=== PATIENT | female | born 2000 | race Caucasian/White ===

== ENCOUNTER 2021-12-08 18:47 | Emergency (ER) | payer OTHER ==
--- OUTSIDE RECORDS SUMMARY | 2021-12-08 18:50 | XMS REPORT | Continuity of Care Document ---
:2000 Author Organization [facility] t Address [address] [place] [address] Care Team Providers Name Role Phone Danica Hahn Primary Care Physician [phone] Ángel PEDRO, Ridge Mo Attending Clinician Unavailable Sherry Lam Attending Clinician Ultrasound, Teresa Attending Clinician Unavailable Imani Encarnacion MD Attending Clinician [phone] IMANI ENCARNACION Attending Clinician Unavailable DAINCA NAVARRETE Attending Clinician Unavailable Danica Hahn Attending Clinician [phone] Payers Payer Name Policy Type Policy Number Effective Date Expiration Date Minoo DIAS [id number] 2021 00:00:00 Problems Condition Condition Condition Status Onset Resolution Last Treating Co mments Source Name Details Category Date Date Treatment Clinician Date Nausea and Nausea and Disease Active U nivers vomiting vomiting 8-11 ity of during during 00:00: [place] 00 [facility] GBS (group GBS (group Disease Active Overview : Univers B B 7-18 Formattin ity of streptococ streptococ 00:00: g of this [place] cus) UTI cus) UTI 00 note Medica l complicati complicati might be Branch ng ng different from the original. pending yaniv Supervisio Supervisio Disease Active U nivers n of n of 7-14 ity of high[place]risk [place] [facility] History of History of Disease Active Overview : Univers depression depression 7-14 Formattin ity of 00:00: g of this [place] note Medical might be Branch different from the original. Not on meds, does not desires meds at this time History of History of Disease Active Overview : Univers anxiety anxiety 7-14 Formattin ity o f 00:00: g of this [place] note Medical might be Branch different from the original. Not on meds, does not desire meds at this time Allergies, Adverse Reactions, Alerts Allergy Allergy Status Severity Reaction(s) Onset Inactive Treating Comm ents Source Name Type Date Date Clinician NO KNOWN Drug Active Univers ALLERGIE Class ity of S [facility] Social History Social Habit Start Date Stop Date Quantity Comments Source ASSERTION 2021-09-26 [facility] 00:00:00 [facility] History of User of smokeless Univers ity of tobacco use tobacco [facility] Exposure to 2021-11-11 2021-11-21 Not sure [facility] SARS-CoV-2 00:00:00 09:43:00 [facility] (event) Branch Tobacco use and 2021-10-24 2021-10-24 Former smokeless Uni versity of exposure 00:00:00 00:00:00 tobacco user [facility] [place] Alcohol intake 2021-10-24 2021-10-24 Ex-drinker [facility] 00:00:00 00:00:00 (finding) [facility] Sex Assigned At [birth year] Universit y of 00:00:00 00:00:00 [facility] Smoking Status Start Date Stop Date Source Never smoked tobacco [facility] [place] [facility] Medications Ordered Filled Start Stop Current Ordering Indication Dosage Frequency Signature Comments Components Source Medication Medication Date Date Medication? Clinician (SIG) Name Name proMETHazin Yes [id number] 25mg Take 1 Univers e 25 mg 8-11 tablet by ity of tablet 00:00: mouth 00 every 6 Medical (six) Branch hours as needed for Nausea and Vomiting (N/V). proMETHazin Yes [id number] 25mg Take 1 Univers e 25 mg 8-11 tablet by ity of tablet 00:00: mouth [place] 00 every 6 Medical (six) Branch hours as needed for Nausea and Vomiting (N/V). proMETHazin Yes [id number] 25mg Take 1 Univers e 25 mg 8-11 tablet by ity of tablet 00:00: mouth [place] 00 every 6 Medical (six) Branch hours as needed for Nausea and Vomiting (N/V). proMETHazin Yes [id number] 25mg Take 1 Univers e 25 mg 8-11 tablet by ity of tablet 00:00: mouth [place] 00 every 6 Medical (six) Branch hours as needed for Nausea and Vomiting (N/V). Yes [id number] 1{packe Take 1 Univers vit 7-25 t} Packet by ity of 33-iron-fol 00:00[place] ic-dha 00 the Medical (SELECT-OB morning. Branc h + DHA) 29 mg iron-1 mg -250 mg combo pack Yes [id number] 1{packe Take 1 Univers vit 7-25 t} Packet by ity of 33-iron-fol 00:00: [place] ic-dha 00 the Medical (SELECT-OB morning. Branc h + DHA) 29 mg iron-1 mg -250 mg combo pack Yes [id number] 1{packe Take 1 Univers vit 7-25 t} Packet by ity of 33-iron-fol 00:[place]: [place] ic-dha 00 the Medical (SELECT-OB morning. Branc h + DHA) 29 mg iron-1 mg -250 mg combo pack Yes [id number] 1{packe Take 1 Univers vit 7-25 t} Packet by ity of 33-iron-fol 00:00: [place] ic-dha 00 the Medical (SELECT-OB morning. Branc h + DHA) 29 mg iron-1 mg -250 mg combo pack Vital Signs Vital Name Observation Time Observation Value Comments Source Systolic blood 2021-11-21 14:42:00 116 mm[Hg] Univer sity of [facility] Diastolic blood 2021-11-21 14:42:00 72 mm[Hg] [facility] Heart rate 2021-11-21 14:42:00 85 /min Universi [facility] Body temperature 2021-11-21 14:42:00 36.17 Conchita [facility] Respiratory rate 2021-11-21 14:42:00 18 /min [facility] Body height 2021-11-21 14:42:00 144.8 cm [facility] Body weight 2021-11-21 14:42:00 44.453 kg [facility] BMI 2021-11-21 14:42:00 21.21 kg/m2 [facility] Procedures Procedure Date / Time Performed Performing Clinician Sourc e POCT URINALYSIS 2021-11-21 00:00:00 Danica Navarrete [facility] Encounters Start End Encounter Admission Attending Care Care Encounter Source Date/Time Date/Time Type Type Clinicians Facility Department ID 2022-01-22 2022-01-22 Outpatient R [facility] [id number] Univers 10:30:00 10:30:00 [id number] [facility] 2022-01-22 2022-01-22 Outpatient P [facility] [id number] Univers 10:30:00 10:30:00 [facility] 2021-12-08 2021-12-08 Nurse OTILIA Neal [id number] Univers 00:00:00 00:00:00 Triage Ridge PEREZ [id number] ity [facility] [id number] Michael as [phone] [address] 2021-12-03 2021-12-03 Abstract Tico [facility] [id number] Univers 00:00:00 00:00:00 Sherry Miller SAND WORKER [id number] ity [facility] [id number] Michael as MATERNAL [phone] [facility] & CHILD [address] [place] [address] 2021-12-02 2021-12-02 Sr. Manager Ultrasound, Teresa [facility] [id number] Univers 09:15:00 09:45:00 Visit Imani Encarnacion SAND WORKER [id number] ity [facility] [id number] Michael as MATERNAL [phone] [facility] & CHILD [address] [facility] 2021-12-02 2021-12-02 Outpatient P OMERE, [facility] [id number] Univers 09:15:00 09:29:35 CHASEY ity of [facility] 2021-11-21 2021-11-21 Outpatient R LANDON, [facility] [id number] Univers 09:45:00 10:05:22 DANICA ity o f [facility] 2021-11-21 2021-11-21 Routine Akinpe, [facility] [id number] Univers 09:45:00 10:05:22 Danica C SAND WORKER [id number] ity of Visit REGIONAL [id number] Michael as MATERNAL [phone] [facility] [address] [facility] Results Test Description Test Time Test Comments Results Result Comments Source POCT URINALYSIS W SPECIFIC GRAVITY 2021-11-21 14:51:00 Test Item Value Reference Range Interpretation Comme nts POCT U SP GRAV (test code = 3255) . 1.005-1.025 POCT PH U (test code = 3254) . 5-8 POCT U LEUK EST (test code = 3263) . Negative - Negative POCT U NIT (test code = 3262) . Negative - Negative POCT U PROT (test code = 3259) Trace Negative - Negative POCT U GLU (test code = 3256) Negative Negative - Negative POCT U KETONE (test code = 3258) . Negative - Negative POCT U UROBILI (test code = 3260) . 0.2-1 POCT U BILI (test code = 3261) . Negative - Negative POCT U BLD (test code = 3257) . Negative - Negative POCT U COLOR (test code = 3266) . POCT U APPEAR (test code = 3267) . [facility]
[2021-12-08 19:23] LABS: Urine Blood Trace-intact (Negative); Urine Glucose Negative (Negative); Urine Protein Negative (Negative); Urine Specific Gravity 1.025 (1.005-1.030)
[2021-12-08 19:41] LABS: Urine Specific Gravity/Preg 1.025 (1.005-1.030)
[2021-12-08 19:59] LABS: Absolute Lymphocytes (CBC) 2.3 K/uL (0.7-4.9); Hematocrit 37.4 % (36.0-45.0); Lymphocytes % 16.2 % (15.3-44.8); MCV 85.2 fL (80-100); MPV 7.2 fL (7.6-11.3); RBC Red Blood Cell Count 4.39 M/uL (3.86-4.86)
[2021-12-08 20:05] LABS: Potassium 3.5 mmol/L (3.5-5.1)
--- NOTE | 2021-12-08 21:20 | RAD REPORT ---
EXAM DESCRIPTION: US - Transvaginal OB - 12/08/2021 8:59 pm CLINICAL HISTORY: Vaginal bleeding COMPARISON: None. TECHNIQUE: Ultrasound obtained of the uterus FINDINGS: Single IUP identified. heart tones are present. heart rate is measured at 156 beats/minute. A yolk sac is identified measuring 5 millimeters. Echogenic band within the gestational sac. measurements are as follows: BPD:1.0 centimeters HC:6.9 Centimeters 12 week 5 day AC:5.5 Centimeters 12 week 2 day HL:0.8 Centimeters FL:0.7 Centimeters 12 week 1 day The estimated gestational age (EGA) is 12 week 2 day with an ARABELLA of 06/20/2022. Posterior placenta. IMPRESSION: Single IUP with positive heart tones measuring 12.2 day with ARABELLA of 06/20/2022. Th in echogenic band within the gestational sac is probably of little clinical significance. This can be reassessed on the patient's routine anatomy scan.
--- NOTE | 2021-12-08 21:58 | ER ---
Nurse's Notes [facility] Name: Kevin Pappas Age: 21 yrs Sex: Female : 2000 Arrival Date: 12/08/2021 Time: 18:48 Bed 8 Private MD: Diagnosis: Threatened Presentation: 12/08 19:08 Chief complaint: Patient states: light spotting. 13 weeks . lower back pain lg3 starting around 0800 this morning. last OB visit 11/22/21. Coronavirus screen: Client denies travel out of the [place] in the last 14 days. At this time, the client does not indicate any symptoms associated with coronavirus-19. Ebola Screen: No symptoms or risks identified at this time. Initial Sepsis Screen:. Initial Sepsis Screen: Does the patient meet any 2 criteria? No. Patient's initial sepsis screen is negative. Does the patient have a suspected source of infection? No. Patient's initial sepsis screen is negative. Risk Assessment: Do you want to hurt yourself or someone else? Patient reports no desire to harm self or others. Onset of symptoms was December 08, 2021. 19:08 Method Of Arrival: Ambulatory lg3 19:08 Acuity: PANCHITO 3 lg3 Triage Assessment: 19:11 General: Appears in no apparent distress. comfortable, Behavior is calm, cooperative. lg3 Pain: Complains of pain in back and pelvis. EENT: No deficits noted. No signs and/or symptoms were reported regarding the EENT system. Neuro: No deficits noted. Level of Consciousness is awake, alert, obeys commands, Oriented to person, place, time, situation. Cardiovascular: No deficits noted. Denies chest pain, shortness of breath, Capillary refill < 3 seconds Clubbing of nail beds is absent JVD is absent Patient's skin is warm and dry. Respiratory: No deficits noted. Airway is patent Respiratory effort is even, unlabored, Respiratory pattern is regular, symmetrical. GI: Abd is soft X 4 quads Abd is non tender X 4 quads. : Reports vaginal bleeding that is spotty. Derm: No deficits noted. No signs and/or symptoms reported regarding the dermatologic system. Skin is intact, is healthy with good turgor, Skin is dry, Skin temperature is warm. Musculoskeletal: No deficits noted. No signs and/or symptoms reported regarding the musculoskeletal system. Circulation, motion, and sensation intact. Range of motion: intact in all extremities. 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 - Social history:: Smoking status: Patient/guardian denies using tobacco, Patient/guardian denies using alcohol, street drugs, IV drugs. Screenin:25 Abuse screen: Denies threats or abuse. Denies injuries from another. Nutritional tw5 screening: No deficits noted. Tuberculosis screening: No symptoms or risk factors identified. Fall Risk None identified. Assessment: 19:25 General: Appears in no apparent distress. Behavior is calm, cooperative, appropriate tw5 for age. General: Reports "I started bleeding around 8 this morning so I called my clinic but they aren't open so they told me if the bleeding continued to come to the ER. I have had spotting off and on all day, I am just really worried.". Pain: Complains of pain in left lower quadrant Pain currently is 4 out of 10 on a pain scale. Pain: Quality of pain is described as crampy. Cardiovascular: No deficits noted. Respiratory: No deficits noted. 20:19 Reassessment: Patient appears in no apparent distress at this time. Patient and/or hb family updated on plan of care and expected duration. Pain level reassessed. Patient is alert, oriented x 3, equal unlabored respirations, skin warm/dry/pink. 21:45 Reassessment: Patient appears in no apparent distress at this time. Patient and/or hb family updated on plan of care and expected duration. Pain level reassessed. Patient is alert, oriented x 3, equal unlabored respirations, skin warm/dry/pink. Vital Signs: 19:08 BP 124 / 69; Pulse 87; Resp 17; Temp 98.8(O); Pulse Ox 100% on R/A; Weight 44.45 kg lg3 (R); Height 4 ft. 8 in. (142.24 cm) (R); 19:25 BP 133 / 92; Pulse 88; Resp 18; Pulse Ox 99% on R/A; Pain 4/10; tw5 20:18 BP 117 / 66; Pulse 87; Resp 16; Pulse Ox 100% on R/A; hb 21:46 BP 122 / 80; Pulse 79; Resp 14; Pulse Ox 99% ; hb 19:08 Body Mass Index 21.97 (44.45 kg, 142.24 cm) lg3 ED Course: 18:48 Patient arrived in ED. as 18:49 Pallavi Lewis FNP-C is PHCP. kb 18:49 Matthew Mederos MD is Attending Physician. kb 19:11 Triage completed. lg3 19:11 Arm band placed on left wrist. lg3 19:25 Saundra Chandler is Primary Nurse. tw5 19:25 Awaiting lab results. tw5 19:25 Patient has correct armband on for positive identification. Bed in low position. Call tw5 light in reach. Side rails up X 1. Pulse ox on. NIBP on. Door closed. Noise minimized. Moved to private room. Pillow given. Verbal reassurance given. 19:49 Inserted saline lock: 20 gauge in left antecubital area, using aseptic technique. mw1 19:50 Initial lab(s) drawn, by pr, sent to lab. mw1 20:24 Quantitative Hcg Sent. tw5 20:24 Abo/rh Typing Sent. tw5 21:01 US Transvaginal Ob In Process Unspecified. EDMS Administered Medications: No medications were administered Outcome: 21:58 Discharge ordered by . kb 22:22 Patient left the ED. Signatures: Dispatcher [employer] EDMS Pallavi Lewis FNP-C FNP-Ckb Martinez, Amelia as Baxter, Heather, RN RN Andrew Campos 1 Marilyn Yang, WILLIS RN 3 Elsi Ramirez Saundra Chandler tw5
--- NOTE | 2021-12-08 21:58 | EDPHYS ---
Physician Documentation [facility] Name: Kvein Pappas Age: 21 yrs Sex: Female : 2000 Arrival Date: 12/08/2021 Time: 18:48 Bed 8 Private MD: ED Physician Matthew Mederos HPI: 12/08 23:25 This 21 yrs old Female presents to ER via Ambulatory with complaints of Vaginal kb Bleeding - 13 wks preg, Pelvic Pain - cramping. 23:25 The patient presents to the emergency department with abdominal pain, described as kb crampy, vaginal bleeding, described as spotting. The estimated gestational age is 12 weeks. course: care: at a clinic, Leakage of Fluid: none appreciated, Ultrasound: the patient had an ultrasound, which was normal, Risk/complications: no obvious risks or complications are appreciated. Previous pregnancies: in previous pregnancies patient has had. Associated signs and symptoms: Pertinent positives: vaginal bleeding. The patient has not experienced similar symptoms in the past. The patient has not recently seen a physician. Patient reports vaginal spotting and lower abdominal cramping that started after intercourse this morning.. 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 - Social history:: Smoking status: Patient/guardian denies using tobacco, Patient/guardian denies using alcohol, street drugs, IV drugs. ROS: 23:24 Constitutional: Negative for fever, chills, and weight loss. kb 23:24 Abdomen/GI: Positive for abdominal cramps. 23:24 : Positive for vaginal bleeding. 23:24 All other systems are negative. Exam: 23:24 Constitutional: This is a well developed, well nourished patient who is awake, alert, kb and in no acute distress. Head/Face: Normocephalic, atraumatic. ENT: Moist Mucous membranes Cardiovascular: Regular rate and rhythm with a normal S1 and S2. No gallops, murmurs, or rubs. No pulse deficits. Respiratory: Respirations even and unlabored. No increased work of breathing. Talking in full sentences Abdomen/GI: Soft, non-tender. No distention Skin: Warm, dry with normal turgor. Normal color. MS/ Extremity: Pulses equal, no cyanosis. Neurovascular intact. Full, normal range of motion. Neuro: Awake and alert, GCS 15, oriented to person, place, time, and situation. Moves all extremities. Normal gait. Psych: Awake, alert, with orientation to person, place and time. Behavior, mood, and affect are within normal limits. Vital Signs: 19:08 BP 124 / 69; Pulse 87; Resp 17; Temp 98.8(O); Pulse Ox 100% on R/A; Weight 44.45 kg lg3 (R); Height 4 ft. 8 in. (142.24 cm) (R); 19:25 BP 133 / 92; Pulse 88; Resp 18; Pulse Ox 99% on R/A; Pain 4/10; tw5 20:18 BP 117 / 66; Pulse 87; Resp 16; Pulse Ox 100% on R/A; hb 21:46 BP 122 / 80; Pulse 79; Resp 14; Pulse Ox 99% ; hb 19:08 Body Mass Index 21.97 (44.45 kg, 142.24 cm) lg3 MDM: 19:11 Patient medically screened. kb 23:24 Data reviewed: vital signs, nurses notes. Data interpreted: Pulse oximetry: on room air kb is 99 %. Interpretation: normal. Counseling: I had a detailed discussion with the patient and/or guardian regarding: the historical points, exam findings, and any diagnostic results supporting the discharge/admit diagnosis, lab results, radiology results, the need for outpatient follow up, an OB/Gyne specialist, to return to the emergency department if symptoms worsen or persist or if there are any questions or concerns that arise at home. 12/08 19:12 Order name: Abo/rh Typing; Complete Time: 20:36 kb 12/08 19:12 Order name: Basic Metabolic Panel; Complete Time: 20:42 kb 12/08 19:12 Order name: CBC with Diff; Complete Time: 20:08 kb 12/08 19:12 Order name: Quantitative Hcg; Complete Time: 20:42 kb 12/08 19:23 Order name: Urine Dipstick-Ancillary; Complete Time: 19:27 EDMS 12/08 19:27 Order name: Urine --Ancillary (enter results); Complete Time: 19:45 wm 12/08 19:12 Order name: IV Saline Lock; Complete Time: 19:45 kb 12/08 19:12 Order name: Labs collected and sent; Complete Time: 19:45 kb 12/08 19:12 Order name: NPO; Complete Time: 19:33 kb 12/08 19:12 Order name: Urine Dipstick-Ancillary (obtain specimen); Complete Time: 19:45 kb 12/08 19:12 Order name: Urine Test (obtain specimen); Complete Time: 19:45 kb 12/08 19:12 Order name: US Transvaginal Ob; Complete Time: 21:21 kb Administered Medications: No medications were administered Disposition: 12/09 07:11 Co-signature as Attending Physician, Matthew Mederos MD. rn Disposition Summary: 12/08/21 21:58 Discharge Ordered Location: Home kb Condition: Stable kb Diagnosis - Threatened kb Followup: kb - With: Emergency Department - When: As needed - Reason: Worsening of condition Followup: kb - With: Private Physician - When: 2 - 3 days - Reason: Recheck today's complaints, Continuance of care, Re-evaluation by your physician Discharge Instructions: - Discharge Summary Sheet kb - Threatened Miscarriage, [id number] kb - Vaginal Bleeding During , First Trimester, [id number] kb Forms: - Medication Reconciliation Form kb - Thank You Letter kb - Antibiotic Education kb - Prescription Opioid Use kb Signatures: Dispatcher [employer] Pallavi Lazo, GLASS WASHER-C GLASS WASHER-Ckb Matthew Mederos MD MD rn Gibson, Lacie, RN RN lg3
[2021-12-08 23:58] VITALS: TEMP 98.8
[2021-12-09 00:31] VITALS: BP 122/80; O2SAT 99
== END 2021-12-08 22:22 | disposition home or self-care (01) ==
LOC: ER 18:47
DX: O20.0 Threatened abortion (principal); Z3A.12 12 weeks gestation of pregnancy
CPT/HCPCS: 36415; 76817; 80048; 81003; 81025; 84702; 85025; 86900; 86901; 99284